=== PATIENT | male | born 1950 | race Caucasian/White ===

== ENCOUNTER 2016-04-02 16:32 | Outpatient (CLI) | payer MEDICARE, MEDICAID | END 2016-04-02 16:33 | disposition home or self-care (01) | DX: R05 Cough (principal) ==

== ENCOUNTER 2016-05-13 14:27 | Outpatient (CLI) | payer MEDICARE, MEDICAID | END 2016-05-13 14:28 | DX: E78.5 Hyperlipidemia, unspecified (principal); I10 Essential (primary) hypertension; Z11.59 Encounter for screening for other viral diseases ==

== ENCOUNTER 2019-04-26 17:30 | Outpatient (CLI) | payer MEDICARE, MEDICAID ==
--- NOTE | 2019-04-27 11:24 | XRAY Report ---
Reason: ARTHRITIS RIGHT SHOULDER Procedure Date: 04/26/2019 Accession Number: [id number] / [id number] Procedure: XR - Shoulder 3 View RT CPT Code: Final Report FULL RESULT: EXAM: RIGHT SHOULDER RADIOGRAPHY EXAM DATE: 04/26/2019 05:52 PM. CLINICAL HISTORY: Right shoulder arthritis. COMPARISON: None. TECHNIQUE: 3 views. FINDINGS: Bones: Normal. No fracture or bone lesion. Joints: No dislocation evident. Tiny osteophytes developing about the inferior glenohumeral joint. The acromioclavicular joint also demonstrates mild to moderate osteoarthritis. Soft tissues: The visualized hemithorax is unremarkable. No soft tissue swelling. IMPRESSION: 1. 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 2. No fracture or malalignment. RADIA
== END 2019-04-26 17:31 | disposition home or self-care (01) ==
LOC: DI 17:30
PROVIDERS: ATTEND Family Medicine
DX: M19.011 Primary osteoarthritis, right shoulder (principal)

== ENCOUNTER 2019-08-22 13:42 | Outpatient (CLI) | payer MEDICARE, MEDICAID ==
--- NOTE | 2019-08-22 15:16 | XRAY Report ---
Reason: BILATERAL CHEST PAIN Procedure Date: 08/22/2019 Accession Number: [id number] / [id number] Procedure: XR - Chest 2 View X-Ray CPT Code: 08914 Final Report FULL RESULT: PROCEDURE: Chest 2 View X-Ray INDICATIONS: BILATERAL CHEST PAIN TECHNIQUE: 2 view(s) of the chest. COMPARISON: None. FINDINGS: Surgical changes and devices: None. Lungs and pleura: No pleural effusions or pneumothorax. Lungs are clear. Mediastinum: Mediastinal contours are normal. Heart size is normal. Bones and chest wall: No suspicious bony abnormalities. Soft tissues appear unremarkable. IMPRESSION: No acute cardiopulmonary pathology. Reviewed by: Jakob Jain MD on 08/22/2019 3:15 PM PDT Approved by: Jakob Jain MD on 08/22/2019 3:15 PM PDT Station ID: [id number]
== END 2019-08-22 13:43 | disposition home or self-care (01) ==
LOC: DI 13:42
PROVIDERS: ATTEND Family Medicine
DX: R07.9 Chest pain, unspecified (principal)
CPT/HCPCS: 71046

== ENCOUNTER 2020-05-13 18:34 | Emergency (ER) | payer MEDICARE, MEDICAID ==
--- NOTE | 2020-05-13 18:59 | ED Physician Documentation ---
History of Present Illness - Stated complaint Stated Complaint: soa - Chief complaint Chief Complaint: General - History obtained from History obtained from: Patient - Additonal information Additional information: 69-year-old gentleman presents with about 3 days worth of shortness of breath with mild cough. He denies fevers or chest pain. No pedal edema. When talking about her shortness of breath he deviates to how much stress he is under, starts talking about his getting kicked out of his house 10 years ago when he was being from his . Review of Systems Ten Systems: 10 systems reviewed and negative Constitutional: reports: Reviewed and negative Eyes: reports: Reviewed and negative Nose: denies: Rhinorrhea / runny nose, Congestion Throat: denies: Oral lesions / sores Cardiac: denies: Chest pain / pressure Respiratory: reports: Dyspnea, Cough PD PAST MEDICAL HISTORY - Present Medications Home Medications: Ambulatory Orders Medication Instructions Recorded Confirmed LORazepam [Ativan] 1 mg PO TID PRN #12 tab 05/13/20 lisinopriL [Lisinopril] 1 tab PO DAILY 05/13/20 05/13/20 - Allergies Allergies/Adverse Reactions: Allergies Allergy/AdvReac Type Severity Reaction Status Date / Time Penicillins Allergy Anaphylaxis Verified 05/13/20 18:46 PD ED PE NORMAL - Vitals Vital signs reviewed: Yes - General General: Alert and oriented X 3 (He is at times tearful with poor eye contact) - HEENT HEENT: PERRL, EOMI - Neck Neck: Supple, no meningeal sign, No bony TTP, No JVD - Cardiac Cardiac: RRR, No murmur - Respiratory Respiratory: No respiratory distress, Clear bilaterally - Abdomen Abdomen: Non tender - Back Back: No CVA TTP, No spinal TTP - Derm Derm: Normal color, Warm and dry - Extremities Extremities: No edema, No calf tenderness / cord - Neuro Neuro: Alert and oriented X 3, Normal speech Results - Vitals Vitals: Vital Signs - 24 hr 05/13/20 18:43 Temperature 36.3 C L Heart Rate 90 Respiratory 20 Rate Blood Pressure 176/91 H O2 Saturation 100 Oxygen O2 Source Room air - EKG (time done) 1900 Rate: Rate (enter#) (81) Rhythm: NSR [place]: Normal Intervals: Normal [place] QRS: Normal Ischemia: Q waves (anteroseptal). No: ST elevation c/w ischemia, ST depression Compare to prior EKG: Old EKG unavailable Computer interpretation: Agree with computer - Labs Labs: Laboratory Tests 05/13/20 05/13/20 05/13/20 20:03 20:03 20:03 WBC 10.1 RBC 5.07 Hgb 15.6 Hct 46.1 MCV 90.9 MCH 30.8 MCHC 33.8 RDW 12.3 Plt Count 219 MPV 12.0 H Neut # (Auto) 7.4 H Lymph # (Auto) 2.0 [place] # (Auto) 0.6 Eos # (Auto) 0.1 Baso # (Auto) 0.0 Absolute Nucleated RBC 0.00 Nucleated RBC % 0.0 Sodium 135 Potassium 4.0 Chloride 99 L Carbon Dioxide 24 Anion Gap 12.0 BUN 18 Creatinine 1.0 Estimated GFR (MDRD) 74 L Glucose 103 H Calcium 9.9 Total Bilirubin 0.6 AST 28 ALT 33 Alkaline Phosphatase 62 Troponin I High Sens 3.9 B-Natriuretic Peptide Total Protein 7.6 Albumin 4.7 Globulin 2.9 Albumin/Globulin Ratio 1.6 05/13/20 20:03 WBC RBC Hgb Hct MCV MCH MCHC RDW Plt Count MPV Neut # (Auto) Lymph # (Auto) [place] # (Auto) Eos # (Auto) Baso # (Auto) Absolute Nucleated RBC Nucleated RBC % Sodium Potassium Chloride Carbon Dioxide Anion Gap BUN Creatinine Estimated GFR (MDRD) Glucose Calcium Total Bilirubin AST ALT Alkaline Phosphatase Troponin I High Sens B-Natriuretic Peptide 16 Total Protein Albumin Globulin Albumin/Globulin Ratio PD MEDICAL DECISION MAKING - ED course ED course: Tunnel symptoms shortness of breath. This is most likely to be psychiatric and related to anxiety based on his presentation. That said the differential diagnosis includes other and more serious etiologies in this 69-year-old. Recommend initially blood work, EKG, chest x-ray. He at least initially adamantly refused blood work saying that he has an undue fear of Blood draws. I offered a sedative and he is considering. Subsequently he admitted that about a week ago he smoked some black tar heroin. He thinks it was a bad batch. He did this because his mom from Covid and he wanted to "escape for a bit.". He denies SI or HI. After consideration he is submitting to blood work as long as I give him a shot of lidocaine first As such I personally noam his blood from the right AC after some local anesthetic with 1% lidocaine with epinephrine. Departure - Departure Disposition: 01 Home, Self Care Clinical Impression: Anxiety Dyspnea Qualifiers: Dyspnea type: dyspnea on exertion Qualified Code(s): R06.00 - Dyspnea, unspecified Condition: Good Record reviewed to determine appropriate education?: Yes Instructions: ED Dyspnea Shortness of Breath Prescriptions: LORazepam [Ativan] 1 mg PO TID PRN #12 tab PRN Reason: Anxiety Comments: It seems likely today that your shortness of breath is due to anxiety and your recent loss. Avoid illegal drug use, follow-up with your primary care physician, also consider finding a counselor to talk with. Return for new or worsening symptoms.
--- NOTE | 2020-05-13 19:34 | XRAY Report ---
PROCEDURE: Chest 2 View X-Ray INDICATIONS: dyspnea TECHNIQUE: 2 view(s) of the chest. COMPARISON: None. FINDINGS: Surgical changes and devices: None. Lungs and pleura: No pleural effusions or pneumothorax. Lungs are clear. Mediastinum: Mediastinal contours are normal. Heart size is normal. Bones and chest wall: No suspicious bony abnormalities. Soft tissues appear unremarkable. IMPRESSION: No evidence acute pulmonary process. Reviewed by: Marquis Hubbard MD on 05/13/2020 7:33 PM [facility] Approved by: aMrquis Hubbard MD on 05/13/2020 7:33 PM [facility] Station ID: [id number]
[2020-05-13] MEDS ORDERED: LIDOCAINE 1%-EPI 1:100000 20 ML MDV SUBQ STA (19:50)
[2020-05-13 20:14] LABS: BASOPHILS % (AUTO) 0.4 %; EOSINOPHILS # (AUTO) 0.1 10^3/uL (0.0-0.7); EOSINOPHILS % (AUTO) 0.7 %; HCT - HEMATOCRIT 46.1 % (42.0-52.0); HGB - HEMOGLOBIN 15.6 g/dL (14.0-18.0); LYMPHOCYTES % (AUTO) 19.7 %; MEAN CORPUSCULAR HEMOGLOBIN 30.8 pg (27.0-31.0); MEAN CORPUSCULAR HGB CONC 33.8 g/dL (32.0-36.0); MEAN CORPUSCULAR VOLUME 90.9 fL (80.0-94.0); MONOCYTES # (AUTO) 0.6 10^3/uL (0.0-1.0); MONOCYTES % (AUTO) 6.2 %; NEUTROPHILS # (AUTO) 7.4 10^3/uL (1.5-6.6); NEUTROPHILS % (AUTO) 72.7 %; PLT - PLATELET COUNT 219 10^3/uL (130-450); RED BLOOD COUNT 5.07 10^6/uL (4.70-6.10); RED CELL DISTRIBUTION WIDTH 12.3 % (12.0-15.0); WHITE BLOOD COUNT 10.1 x10^3/uL (4.8-10.8)
[2020-05-13] MEDS ORDERED: LORazepam 1 MG TABLET PO STA (20:20)
[2020-05-13 20:25] LABS: ALBUMIN 4.7 g/dL (3.2-5.5); ALBUMIN/GLOBULIN RATIO 1.6 (1.0-2.2); BILIRUBIN,TOTAL 0.6 mg/dL (0.2-1.0); CALCIUM 9.9 mg/dL (8.5-10.3); TOTAL PROTEIN 7.6 g/dL (6.7-8.2)
[2020-05-13 21:03] VITALS: BP 158/90
== END 2020-05-13 21:09 | disposition home or self-care (01) ==
LOC: ED 18:34
DX: F41.9 Anxiety disorder, unspecified (principal); R06.02 Shortness of breath; F43.9 Reaction to severe stress, unspecified
CPT/HCPCS: 36415; 71046; 80053; 83880; 84484; 85025; 93005; 99283; J8499

== ENCOUNTER 2020-07-27 14:28 | Emergency (ER) | payer MEDICARE, MEDICAID ==
[2020-07-27] MEDS ORDERED: BUPRENORPHINE 0.3 MG/ML AMP IM ONE (15:12)
--- NOTE | 2020-07-27 15:23 | ED Physician Documentation ---
History of Present Illness - Stated complaint Stated Complaint: RX REFILL - Chief complaint Chief Complaint: General - History obtained from History obtained from: Patient - History of Present Illness Timing: Today Pain level max: 0 Pain level now: 0 - Additonal information Additional information: Patient is a 69-year-old male who has been using heroin daily for the last 8 days. He states that he is concerned he is going to go through withdrawal and is requesting "a pill". He has Xanax at home already. He states that 30 years ago before he got on a flight, his friend gave him a pill that helped prevent withdrawal. He does not know what this was. He is currently not experiencing any symptoms. No nausea, vomiting, diarrhea. No abdominal pain or cramping. The patient states last time he went through withdrawal for 8 days, but was constipated and did not have any vomiting. He states he just had generalized body pain. He denies any other drug use. Review of Systems Ten Systems: 10 systems reviewed and negative Constitutional: denies: Fever, Chills Nose: denies: Rhinorrhea / runny nose, Congestion Cardiac: denies: Chest pain / pressure Respiratory: denies: Cough GI: denies: Abdominal Pain, Nausea, Vomiting, Constipation, Diarrhea Skin: denies: Rash Musculoskeletal: denies: Neck pain, Back pain Neurologic: denies: Headache PD PAST MEDICAL HISTORY - Past Medical History Past Medical History: Yes Cardiovascular: Hypertension - Past Surgical History Past Surgical History: No General: Hiatal hernia repair - Present Medications Home Medications: Ambulatory Orders Medication Instructions Recorded Confirmed ALPRAZolam [Alprazolam] 0.25 mg PO TID PRN 07/27/20 07/27/20 Buspirone HCl 10 mg PO DAILY 07/27/20 07/27/20 Cyclobenzaprine [Flexeril] 10 mg PO BID 07/27/20 07/27/20 Famotidine [Acid-Pep] 20 mg PO DAILY 07/27/20 07/27/20 Finasteride [Proscar] 5 mg PO DAILY 07/27/20 07/27/20 Lisinopril [Zestril] 40 mg PO DAILY 07/27/20 07/27/20 Naproxen [EC-Naproxen] 500 mg PO BID PRN 07/27/20 07/27/20 - Allergies Allergies/Adverse Reactions: Allergies Allergy/AdvReac Type Severity Reaction Status Date / Time Penicillins Allergy Anaphylaxis Verified 07/27/20 14:46 - Social History Does the pt smoke?: No Smoking Status: Never smoker Does the pt drink ETOH?: No Does the pt have substance abuse?: Yes Substance Use and Type: Heroin PD ED PE NORMAL - Vitals Vital signs reviewed: Yes - General General: Alert and oriented X 3, No acute distress, Well developed/nourished - HEENT HEENT: PERRL, Moist mucous membranes - Neck Neck: Supple, no meningeal sign - Cardiac Cardiac: RRR, Strong equal pulses - Respiratory Respiratory: No respiratory distress, Clear bilaterally - Abdomen Abdomen: Soft, Non tender, Non distended - Derm Derm: Warm and dry - Extremities Extremities: No edema - Neuro Neuro: Alert and oriented X 3 - Psych Psych: Normal mood, Normal affect Results - Vitals Vitals: Vital Signs - 24 hr 07/27/20 14:37 Temperature 36.2 C L Heart Rate 85 Respiratory 18 Rate Blood Pressure 142/78 H O2 Saturation 99 Oxygen O2 Source Room air PD MEDICAL DECISION MAKING - ED course Complexity details: considered differential, d/w patient ED course: 69-year-old male concerned about potential narcotic withdrawal. Was given a dose of buprenorphine here. We will have him follow-up with a Suboxone clinic t o discuss treatment options. Patient refuses rehab, social work consult or detox. Patient already has a bottle of Xanax at home. Patient counseled regarding signs and symptoms for which I believe and urgent re-evaluation would be necessary. Patient with good understanding of and agreement to plan and is comfortable going home at this time This document was made in part using voice recognition software. While efforts are made to proofread this document, sound alike and grammatical errors may occur. Departure - Departure Disposition: 01 Home, Self Care Clinical Impression: Heroin use Condition: Good Instructions: ED Narcotic Abuse Follow-Up: Bernardo José DO [Primary Care Provider] - Within 1 week Comments: You can contact [facility] on Wednesday for a same day appointment, they can prescribe suboxone if needed for withdrawal. [email or web address] [phone] [id number] [email or web address] [place] [address]
[2020-07-27 15:58] VITALS: BP 153/75
[2020-07-27] MEDS ORDERED: BUPRENORPHINE 0.3 MG/ML VIAL IM ONE (16:00)
== END 2020-07-27 15:58 | disposition home or self-care (01) ==
LOC: ED 14:28
DX: F11.10 Opioid abuse, uncomplicated (principal); I10 Essential (primary) hypertension
CPT/HCPCS: 96372; 99283; J0592

== ENCOUNTER 2020-07-31 19:10 | Emergency (ER) | payer MEDICARE, MEDICAID ==
--- NOTE | 2020-07-31 19:20 | ED Physician Documentation ---
History of Present Illness - Stated complaint Stated Complaint: MED REFILL - Additonal information Additional information: 69-year-old male presents the emergency department hoping for a Vaponefrin injection as well as a prescription for Suboxone. He was seen in this emergency department on the after using heroin daily for about 8 days. At that time he was concerned that he was going into withdrawal. He was seen by my colleague and did receive epinephrine injection. He was advised to follow-up with [facility]. This gentleman reports that he called [facility] but did not understand how to get to the actual clinic. He also reports that due to night sweats some shakes and tremors he did use heroin yesterday. This gentleman reports that he does care for his was at home on oxygen. He has very limited resources here [facility] And states that he does not have access to a computer. He is also hesitant to ask his ex- for help as he does not want her to know that he uses heroin. Review of Systems Constitutional: reports: Fever, Myalgias Eyes: reports: Reviewed and negative Ears: reports: Reviewed and negative Nose: reports: Reviewed and negative Throat: reports: Reviewed and negative Cardiac: reports: Reviewed and negative Respiratory: reports: Reviewed and negative GI: reports: Reviewed and negative : reports: Dysuria Skin: reports: Reviewed and negative PD PAST MEDICAL HISTORY - Past Medical History Cardiovascular: Hypertension - Past Surgical History Past Surgical History: No General: Hiatal hernia repair - Present Medications Home Medications: Ambulatory Orders Medication Instructions Recorded Confirmed ALPRAZolam [Alprazolam] 0.25 mg PO TID PRN 07/27/20 07/27/20 Buspirone HCl 10 mg PO DAILY 07/27/20 07/27/20 Cyclobenzaprine [Flexeril] 10 mg PO BID 07/27/20 07/27/20 Famotidine [Acid-Pep] 20 mg PO DAILY 07/27/20 07/27/20 Finasteride [Proscar] 5 mg PO DAILY 07/27/20 07/27/20 Lisinopril [Zestril] 40 mg PO DAILY 07/27/20 07/27/20 Naproxen [EC-Naproxen] 500 mg PO BID PRN 07/27/20 07/27/20 - Allergies Allergies/Adverse Reactions: Allergies Allergy/AdvReac Type Severity Reaction Status Date / Time Penicillins Allergy Anaphylaxis Verified 07/31/20 19:14 - Social History Does the pt smoke?: No Smoking Status: Never smoker Does the pt drink ETOH?: No Does the pt have substance abuse?: Yes PD ED PE EXPANDED - General General: Alert, No acute distress, Well developed/nourished - Cardiac Cardiac: Regular Rate, Radial strong equal, Pedal strong equal, Cap refill < 2 sec - Respiratory Respiratory: Clear to ausultation darrel. No: Distress, Labored - Abdomen Abdomen: Normal Bowel sounds. No: Tender to palpation - Extremities Extremities: Normal. No: Deformity, Tenderness - Neuro Neuro: Alert and Oriented X 3, CNII-XII intact - GCS Eye Opening: Spontaneous Motor: Obeys Commands Verbal: Oriented Total: 15 Results - Vitals Vitals: Vital Signs - 24 hr 07/31/20 19:14 Temperature 36.6 C Heart Rate 88 Respiratory 16 Rate Blood Pressure 180/78 H O2 Saturation 99 Oxygen O2 Source Room air PD MEDICAL DECISION MAKING - ED course Complexity details: reviewed results, re-evaluated patient, d/w patient ED course: 69-year-old male presents the emergency department requesting a readministration of the epinephrine. He has had difficulty following up with [facility] after a recent binge use of heroin after his mother . Here in the emergency department he does not have any tachycardia sweats tremors. He does endorse some mild nausea as well as night sweats last night. He last used heroin on the . I have given him a one-time injection of epinephrine here in the emergency department. Because he is finding difficulty following up with [facility] or similar providers as an outpatient I encouraged him to return to the emergency department tomorrow to speak with our rn social work. He has also secured a ride home to prevent himself from driving tonight but he should likely be able to drive tomorrow. Departure - Departure Disposition: 01 Home, Self Care Clinical Impression: Narcotic abuse, episodic Condition: Stable Record reviewed to determine appropriate education?: Yes Comments: Betito I would like you to return to the emergency department tomorrow so that you can speak with our rn social work who may be able to help you with resources to get you to a Suboxone clinic for your long-term narcotic use. It is important that you do not drive for the next 24 hours after receiving the Suboxone. Please do not use heroin tonight. I wish you luck in your recovery I will see you tomorrow.
[2020-07-31] MEDS ORDERED: BUPRENORPHINE 0.3 MG/ML AMP IVP ONE (19:52)
[2020-07-31] MEDS ORDERED: BUPRENORPHINE 0.3 MG/ML VIAL ONE (20:03)
[2020-07-31] MEDS ORDERED: BUPRENORPHINE 0.3 MG/ML VIAL IM ONE (20:07)
[2020-07-31 20:48] VITALS: BP 160/80
== END 2020-07-31 20:40 | disposition home or self-care (01) ==
LOC: ED 19:10
DX: F11.10 Opioid abuse, uncomplicated (principal); I10 Essential (primary) hypertension
CPT/HCPCS: 96372; 99283; 99284; J0592

== ENCOUNTER 2021-05-20 12:17 | Outpatient (CLI) | payer MEDICARE, MEDICAID | END 2021-05-20 12:18 | disposition E | LOC: EMS 12:17 ==